=== PATIENT | female | born 1945 | race Caucasian/White ===

== ENCOUNTER 2021-08-21 08:15 | Outpatient (CLI) | payer MEDICARE | END 2021-08-21 08:16 | disposition home or self-care (01) | LOC: CSHCT 08:15 | PROVIDERS: ATTEND Physician Assistant Medical | DX: C18.9 Malignant neoplasm of colon, unspecified (principal); R91.8 Other nonspecific abnormal finding of lung field; Z90.5 Acquired absence of kidney; K57.30 Diverticulosis of large intestine without perforation or abscess without bleeding | CPT/HCPCS: 71260; 74177 ==

== ENCOUNTER 2021-10-10 17:11 | Emergency (ER) | payer MEDICARE ==
[~2021-10-10 17:11] MED LIST: Iopamidol 300 61% 100 ML VIAL FS ONE
[2021-10-10] MEDS ORDERED: Ondansetron PF 4 MG/2 ML Vial ONE (18:04)
[2021-10-10] MEDS ORDERED: Fentanyl 100 MCG/2 ML VIAL ONE (18:05)
[2021-10-10 18:11] LABS: #Basophils 0.1 10x3/uL (0.0-0.2); #Eosinphils 1.3 10x3/uL (0.0-0.5); #Monocytes 0.3 10x3/uL (0.0-1.1); #Neutrophils 6.5 10x3/uL (1.5-8.4); %Basophils 0.7 % (0.0-2.0); %Eosinophils 14.6 % (0.0-6.0); %Monocytes 3.5 % (0.0-10.0); %Neutrophils 70.7 % (40.0-75.0); Hemoglobin 10.6 g/dL (12.0-15.5); Mean Corpuscular HGB CONC 31.8 g/dL (32.0-36.0); Mean Corpuscular Hemoglobin 25.2 pg (27.0-33.0); Mean Corpuscular Volume 79.3 fl (81.6-98.3); Mean Platelet Volume 10.8 fl (7.4-10.4); Platelet Count 463 10x3/uL (150-450); RBC Distribution Width 18.7 % (11.5-14.5); White Blood Cell (WBC) Count 9.2 10x3/uL (3.5-10.5)
[2021-10-10 18:24] LABS: ALT (SGPT) 13 U/L (8-55); AST (SGOT) 23 U/L (5-34); Albumin 3.7 g/dL (3.4-4.8); Alkaline Phosphatase 197 U/L (40-110); Anion Gap 18 mmol/L (10-20); BUN (Urea Nitrogen) 29 mg/dL (9.8-20.1); Bilirubin, Total 0.5 mg/dL (0.2-1.2); Calc. Creatinine Clearance 0 mL/min (70-130); Calcium 9.5 mg/dL (7.8-10.44); Carbon Dioxide 26 mmol/L (23-31); Chloride 89 mmol/L (98-107); Estimated GFR 38; Globulin 3.6 g/dL (2.4-3.5); Glucose 104 mg/dL (83-110); Lipase 254 U/L (8-78); Potassium 4.2 mmol/L (3.5-5.1); Protein, Total 7.3 g/dL (5.8-8.1); Sodium 129 mmol/L (136-145)
[2021-10-10 19:15] LABS: Bilirubin Neg (Negative); Blood, Urine 250 (Negative); Glucose, Urine (Dipstick) Normal (Negative); Ketone, Urine Negative (Negative); Leukocyte 500 (Negative); Nitrite Negative (Negative); Protein, Urine (Dipstick) 30 mg/dl (Neg-Trace); Urobilinogen Normal mg/dL (Less than 2); pH, Urine 6.5 (5.0-9.0)
[2021-10-10 19:33] LABS: Clarity Hazy (Clear)
[2021-10-10 19:36] LABS: Squamous Epithelial 0-3 HPF (0-3)
[2021-10-10 19:38] LABS: Bacteria/HPF 1+ HPF (None Seen)
[2021-10-10] MEDS ORDERED: Acetaminophen 500 MG TAB ONE (22:27)
== END 2021-10-11 01:11 | disposition short-term general hospital (02) ==
LOC: CSHERS 17:11
DX: G89.18 Other acute postprocedural pain (principal); R10.9 Unspecified abdominal pain; E87.1 Hypo-osmolality and hyponatremia; R11.2 Nausea with vomiting, unspecified; N39.0 Urinary tract infection, site not specified; I10 Essential (primary) hypertension; Z79.899 Other long term (current) drug therapy
CPT/HCPCS: 36415; 74177; 80053; 81003; 81015; 83690; 85025; 87086; 93005; 96361; 96365; 96375; J1956; J2405; J3010; Q9967

== ENCOUNTER 2021-11-07 12:05 | Outpatient (CLI) | payer MEDICARE ==
[2021-11-07] MEDS ORDERED: diphenhydrAMINE 25 MG CAP ONE (12:42)
[2021-11-07] MEDS ORDERED: Iopamidol 300 61% 100 ML VIAL FS ONE (15:48)
== END 2021-11-07 12:06 | disposition home or self-care (01) ==
LOC: CSHCT 12:05
PROVIDERS: ATTEND Internal Medicine Hematology & Oncology
DX: C18.9 Malignant neoplasm of colon, unspecified (principal); R91.8 Other nonspecific abnormal finding of lung field
CPT/HCPCS: 71260; 82565; Q9967

== ENCOUNTER 2022-05-27 11:07 | Outpatient (CLI) | payer MEDICARE | END 2022-05-27 11:08 | disposition home or self-care (01) | LOC: CSHCT 11:07 | PROVIDERS: ATTEND Internal Medicine Hematology & Oncology | DX: C18.9 Malignant neoplasm of colon, unspecified (principal); Z90.49 Acquired absence of other specified parts of digestive tract; M62.9 Disorder of muscle, unspecified; R91.1 Solitary pulmonary nodule | CPT/HCPCS: 71260; 74177; 82565 ==

== ENCOUNTER 2024-04-08 11:35 | Outpatient (CLI) | payer MEDICARE | END 2024-04-08 11:36 | disposition home or self-care (01) | LOC: CSHMAMMO 11:35 | PROVIDERS: ATTEND Student in an Organized Health Care Education/Training Program | DX: Z12.31 Encounter for screening mammogram for malignant neoplasm of breast (principal) | CPT/HCPCS: 77063; 77067 ==